=== PATIENT | male | born 1970 | race Caucasian/White ===

== ENCOUNTER 2016-11-14 13:02 | Day surgery (SDC) | payer OTHER ==
[~2016-11-14] VITALS: Ht 185.4 cm; Wt 220.2 kg
[~2016-11-14 13:02] MED LIST: ALDACTONE 25MG25 M1 PO; ASPIRIN 32325 MG/TAB PO; COZAAR100 MG PO; EUCERIN1 CRE TP; HCTZ 25MG TAB25 MG PO; TENORMIN100 MG PO; ZYLOPRIM 300MG300 MG PO
[2016-11-14 13:29] VITALS: BP 147/104; PULSE 65; TEMP 97.8
[2016-11-14] MEDS ORDERED: NORCO 325 MG-51 TAB PO (13:52)
[2016-11-14] MEDS ORDERED: COZAAR100 MG PO (13:52)
[2016-11-14] MEDS ORDERED: COREG 6.256.25 MG/TA PO (13:53)
[2016-11-14] MEDS ORDERED: ALDACTAZIDE 251 TAB PO (13:53)
[2016-11-14] MEDS ORDERED: LASIX 40MG TABL40 MG PO (13:54)
[2016-11-14 15:15] VITALS: BP 151/107; PULSE 79; TEMP 97.7
[2016-11-14] MEDS ORDERED: PRIL40 PO (15:22)
[2016-11-14 15:30] VITALS: BP 154/80; PULSE 80
[2016-11-14 15:45] VITALS: BP 154/100; PULSE 64
== END 2016-11-14 16:08 | disposition home or self-care (01) ==
LOC: SDCO 13:02
DX: K30 Functional dyspepsia (principal); K26.7 Chronic duodenal ulcer without hemorrhage or perforation; K29.90 Gastroduodenitis, unspecified, without bleeding; I10 Essential (primary) hypertension; G47.33 Obstructive sleep apnea (adult) (pediatric); E66.01 Morbid (severe) obesity due to excess calories; Z68.44 Body mass index [BMI] 60.0-69.9, adult
CPT/HCPCS: OP; J2250; J7120